=== PATIENT | male | born 1990 | race Two or more races ===

== ENCOUNTER 2022-06-27 06:54 | Emergency (ER) | payer BC ==
[~2022-06-27] VITALS: Ht 170.2 cm; Wt 61.4 kg
[2022-06-27] MEDS ORDERED: KETOROLAC TROMETHAMINE 15 MG/ML VIAL IVP ONE (07:15)
[2022-06-27] MEDS ORDERED: SODIUM CHLORIDE 0.9% 1,000 ML IV ONE (07:15)
[2022-06-27] MEDS ORDERED: ACETAMINOPHEN 500 MG TABLET PO ONE (07:15)
[2022-06-27] MEDS ORDERED: KETOROLAC TROMETHAMINE 30 MG/ML VIAL IVP ONE (07:15)
[2022-06-27 07:54] LABS: BASOPHILS % (AUTO) 0.8 % (0.0-2.0); EOSINOPHILS % (AUTO) 1.3 % (1.0-6.0); HEMATOCRIT 45.2 % (41-53); HEMOGLOBIN 15.1 g/dL (13.5-17.5); LYMPHOCYTES # (AUTO) 2.4 K/uL (1.0-4.8); LYMPHOCYTES % (AUTO) 33.7 % (22.0-44.0); MEAN CORPUSCULAR HEMOGLOBIN 31.2 pg (26.0-34.0); MEAN CORPUSCULAR HGB CONC 33.4 G/dL (31.0-37.0); MEAN CORPUSCULAR VOLUME 93 fL (80-100); MONOCYTES # (AUTO) 0.4 K/uL (0.1-1.0); MONOCYTES % (AUTO) 5.9 % (2.0-9.0); NEUTROPHILS # (AUTO) 4.1 K/uL (1.8-7.7); NEUTROPHILS % (AUTO) 58.3 % (40.0-70.0); PLATELET COUNT (AUTO) 205 K/uL (150-450); RED BLOOD CELL COUNT(AUTO) 4.84 MIL/uL (4.50-5.90); RED CELL DISTRIBUTION WIDTH 12.6 % (11.5-14.5)
[2022-06-27 08:03] LABS: ANION GAP 11 mmol/L (8-16); CALCIUM, TOTAL 9.4 mg/dL (8.8-10.5); CARBON DIOXIDE 24 mmol/L (22-29); CHLORIDE 103 mmol/L (98-107); CREATININE 0.79 mg/dL (0.60-1.30); GLOMERULAR FILTR. RATE CALC > 60 mL/min (>60); GLUCOSE,RANDOM 106 mg/dL (70-110); POTASSIUM 3.8 mmol/L (3.5-5.1); SODIUM SERUM 138 mmol/L (136-145); UREA NITROGEN, BLOOD 9 mg/dL (7-18)
[2022-06-27 08:12] LABS: LACTIC ACID 0.9 mmol/L (0.4-2.0)
[2022-06-27 08:38] LABS: ALANINE AMINOTRANSFERASE 39 U/L (12-78); ALBUMIN 4.9 g/dL (3.4-5.0); ALKALINE PHOSPHATASE 78 U/L (46-116); ASPARTATE AMINOTRANSFERASE 18 U/L (15-37); BILIRUBIN,TOTAL 1.5 mg/dL (0.1-1.0); CREATINE KINASE, TOTAL ONLY 124 U/L (39-308); TOTAL PROTEIN, SERUM 8.7 g/dL (6.4-8.2)
[2022-06-27] MEDS ORDERED: SODIUM CHLORIDE 0.9% 100 ML ONE (08:39)
[2022-06-27] MEDS ORDERED: IOHEXOL 350 MG/ML 100 ML VIAL ONE (08:39)
[2022-06-27 09:15] LABS: COVID AG,FIA SOURCE NASOPHARYNGEAL
[2022-06-27] MEDS ORDERED: HYDR30CR44 TP (12:42)
[2022-06-27] MEDS ORDERED: DOCU-385 PO (12:42)
[2022-06-27] MEDS ORDERED: CefTRIAXone SODIUM 1 GM/VIAL IM ONE (13:00)
[2022-06-27] MEDS ORDERED: DOXYCYCLINE HYCLATE 100 MG TABLET PO ONE (13:00)
[2022-06-27] MEDS ORDERED: LIDOCAINE/PF 1% 2 ML VIAL IM ONE (13:00)
[2022-06-27] MEDS ORDERED: DOXY-354 PO (13:22)
[2022-06-27 14:08] VITALS: BP 106/57
== END 2022-06-27 14:12 | disposition home or self-care (01) ==
LOC: EMS 06:54
DX: K64.4 Residual hemorrhoidal skin tags (principal); A64 Unspecified sexually transmitted disease; F17.210 Nicotine dependence, cigarettes, uncomplicated; Z90.49 Acquired absence of other specified parts of digestive tract; Z20.822 Contact with and (suspected) exposure to COVID-19
CPT/HCPCS: 99285; 74177; 96374; 96361; 87426; 80053; 82550; 83605; 85025; 87040; 36415; 87491; 87591; 96372; 84145; J0696; J1885; J3490; Q9967; J7030; J7050